=== PATIENT | female | born 1970 | race American Indian/Alaskan Native ===

== ENCOUNTER 2020-10-03 22:22 | Emergency (ER) | payer OTHER, MEDICAID ==
[2020-10-03] MEDS ORDERED: HYDROcodone/ACETAMINOPHEN 5-325 MG TAB PO ONE (22:30)
[2020-10-03] MEDS ORDERED: IBUPROFEN 800 MG TAB PO ONE (22:30)
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
[2020-10-04 00:04] VITALS: BP 135/87
== END 2020-10-04 00:03 | disposition home or self-care (01) ==
LOC: ED 22:22
DX: S39.012A Strain of muscle, fascia and tendon of lower back, initial encounter (principal); S40.012A Contusion of left shoulder, initial encounter; Z79.899 Other long term (current) drug therapy; V49.49XA Driver injured in collision with other motor vehicles in traffic accident, initial encounter; Y92.410 Unspecified street and highway as the place of occurrence of the external cause; Y93.89 Activity, other specified; Y99.8 Other external cause status
CPT/HCPCS: 72100